=== PATIENT | female | born 1995 | race African-American/Black ===

== ENCOUNTER 2021-06-12 08:18 | Emergency (ER) | payer OTHER ==
[~2021-06-12] VITALS: Ht 165.1 cm; Wt 108.9 kg
[2021-06-12 09:09] VITALS: BP 148/81
== END 2021-06-12 09:09 | disposition left against medical advice (07) ==
LOC: ER 08:18
DX: R10.30 Lower abdominal pain, unspecified (principal); N93.9 Abnormal uterine and vaginal bleeding, unspecified; Z86.16 Personal history of COVID-19